=== PATIENT | male | born 1950 | race Caucasian/White ===

== ENCOUNTER 2017-06-04 04:25 | Inpatient (IN) | payer MEDICARE, OTHER ==
[2017-06-04] MEDS: ONDANSETRON 4 MG INJ IV (05:45)
[2017-06-04] MEDS: SOD CHLORIDE 0.9% 1,000 ML IV ×2 (05:45→12:00)
[2017-06-04] MEDS: morphine 4 MG/ML VIAL IV ×2 (05:45→06:41)
[2017-06-04 07:05] LABS: ADD MAN DIFF? NO
[2017-06-04 07:07] LABS: BASOPHILS % 0.2 % (0.0-2.0); EOSINOPHILS % 0.1 % (0.0-7.0); HEMATOCRIT 42.2 % (42.0-52.0); HEMOGLOBIN 14.8 g/dl (14.0-18.0); LYMPHOCYTES # 0.9 10^3/ul (0.8-2.9); LYMPHOCYTES % 8.5 % (15.0-51.0); MEAN CORPUSCULAR HEMOGLOBIN 32.2 pg (29.0-33.0); MEAN CORPUSCULAR HGB CONC 35.1 g/dl (32.0-37.0); MEAN CORPUSCULAR VOLUME 91.9 fl (82.0-101.0); MEAN PLATELET VOLUME 9.4 fl (7.4-10.4); MONOCYTE # 0.4 10^3/ul (0.3-0.9); MONOCYTES % 3.8 % (0.0-11.0); NEUTROPHIL # 8.7 10^3/ul (1.6-7.5); PLATELET COUNT 224 10^3/UL (140-415); RED BLOOD COUNT 4.59 10^6/ul (4.70-6.10); RED CELL DISTRIBUTION WIDTH 12.2 % (11.5-14.5)
[2017-06-04 07:32] LABS: ALANINE AMINOTRANSFERASE 60 IU/L (13-69); ALBUMIN 4.5 g/dl (3.3-4.9); ALBUMIN/GLOBULIN RATIO 1.28; ALKALINE PHOSPHATASE 89 IU/L (42-121); ANION GAP 18 (8-16); ASPARTATE AMINO TRANSFERASE 34 IU/L (15-46); BILIRUBIN,INDIRECT 0.2 mg/dl (0-1.1); BILIRUBIN,TOTAL 0.2 mg/dl (0.2-1.3); BLOOD UREA NITROGEN 13 mg/dl (7-20); CALCIUM 9.3 mg/dl (8.4-10.2); CARBON DIOXIDE 26 mmol/L (21-31); CHLORIDE 106 mmol/L (97-110); CREATININE 0.93 mg/dl (0.61-1.24); GLUCOSE 216 mg/dl (70-220); LIPASE 77 U/L (23-300); POTASSIUM 3.9 mmol/L (3.5-5.1); SODIUM 146 mmol/L (135-144)
[2017-06-04 07:51] LABS: TROPONIN-I < 0.012 ng/ml (0.00-0.12)
[2017-06-04] MEDS: AMPICILLIN/SULB 3 GM/NS (PMX) 100 ML IVPB (08:54)
[2017-06-04] MEDS ORDERED: ONDANSETRON 4 MG INJ IV ×2 (09:00→11:30)
[2017-06-04] MEDS ORDERED: ACETAMINOPHEN 325 MG TAB PO (09:00)
[2017-06-04 11:06] LABS: INR 1.06; PROTIME 13.9 Sec (11.9-14.9); PT RATIO 1.1
[2017-06-04 11:07] LABS: PARTIAL THROMBOPLASTIN TIME 27.4 Sec (25.0-35.0)
[2017-06-04] MEDS ORDERED: MAGNESIUM HYDROXIDE 30ML CUP PO (11:30)
[2017-06-04] MEDS ORDERED: PROVENTIL HFA 6.7GM INHALER INH (11:30)
[2017-06-04] MEDS ORDERED: GLUCOSE GEL 15 GRAM TUBE BUCCAL (11:30)
[2017-06-04] MEDS ORDERED: BISACODYL 10 MG SUPP PR (11:30)
[2017-06-04] MEDS ORDERED: HYDROCODONE/APAP (5/325) TAB PO ×2 (11:30)
[2017-06-04] MEDS ORDERED: DOCUSATE SODIUM 100 MG CAP PO (11:30)
[2017-06-04] MEDS ORDERED: ACETAMINOPHEN 650 MG SUPP PR (11:30)
[2017-06-04] MEDS ORDERED: DEXTROSE 50% 50 ML SYRINGE IV ×2 (11:30)
[2017-06-04] MEDS ORDERED: morphine 2 MG INJ IV (11:30)
[2017-06-04] MEDS ORDERED: GLUCOSE GEL 15 GRAM TUBE PO ×2 (11:30)
[2017-06-04] MEDS ORDERED: GLUCAGON 1 MG INJ IM (11:30)
[2017-06-04] MEDS ORDERED: NACL 0.9% 3 ML SYG IV (11:30)
[2017-06-04] MEDS: INSULIN ASPART [NOVOLOG] 3 ML PEN SC ×3 (12:00→21:00)
[2017-06-04] MEDS ORDERED: ALBUTEROL HFA 8 GM INHALER INH (13:00)
[2017-06-04] MEDS: ACETAMINOPHEN 325 MG TAB PO (20:03)
[2017-06-05] MEDS: ACCU-CHEK XX (02:00)
[2017-06-05] MEDS: SOD CHLORIDE 0.9% 1,000 ML IV (03:16)
[2017-06-05] MEDS: PANTOPRAZOLE 40 MG INJ IV (05:34)
[2017-06-05 05:57] LABS: ADD MAN DIFF? NO
[2017-06-05] MEDS ORDERED: PANTOPRAZOLE 40 MG INJ IV ×2 (06:00)
[2017-06-05 06:06] LABS: WHITE BLOOD COUNT 9.4 10^3/ul (4.8-10.8)
[2017-06-05 06:06] LABS: BASOPHILS % 0.1 % (0.0-2.0); EOSINOPHILS % 0.3 % (0.0-7.0); HEMATOCRIT 38.4 % (42.0-52.0); HEMOGLOBIN 13.5 g/dl (14.0-18.0); LYMPHOCYTES # 1.7 10^3/ul (0.8-2.9); LYMPHOCYTES % 18.1 % (15.0-51.0); MEAN CORPUSCULAR HEMOGLOBIN 32.4 pg (29.0-33.0); MEAN CORPUSCULAR HGB CONC 35.2 g/dl (32.0-37.0); MEAN CORPUSCULAR VOLUME 92.1 fl (82.0-101.0); MEAN PLATELET VOLUME 9.2 fl (7.4-10.4); MONOCYTE # 0.8 10^3/ul (0.3-0.9); MONOCYTES % 8.1 % (0.0-11.0); NEUTROPHIL # 6.9 10^3/ul (1.6-7.5); NEUTROPHILS % 73.2 % (39.0-77.0); PLATELET COUNT 190 10^3/UL (140-415); RED BLOOD COUNT 4.17 10^6/ul (4.70-6.10); RED CELL DISTRIBUTION WIDTH 12.4 % (11.5-14.5)
[2017-06-05 06:22] LABS: ALANINE AMINOTRANSFERASE 49 IU/L (13-69); ALBUMIN 3.5 g/dl (3.3-4.9); ALBUMIN/GLOBULIN RATIO 1.12; ALKALINE PHOSPHATASE 55 IU/L (42-121); ANION GAP 14 (8-16); ASPARTATE AMINO TRANSFERASE 29 IU/L (15-46); BILIRUBIN,INDIRECT 0.7 mg/dl (0-1.1); BILIRUBIN,TOTAL 0.7 mg/dl (0.2-1.3); BLOOD UREA NITROGEN 11 mg/dl (7-20); CALCIUM 8.5 mg/dl (8.4-10.2); CARBON DIOXIDE 27 mmol/L (21-31); CHLORIDE 106 mmol/L (97-110); CHOL/HDL RATIO 3.3 RATIO; CHOLESTEROL 142 mg/dl (100-200); CREATININE 0.85 mg/dl (0.61-1.24); GLUCOSE 92 mg/dl (70-220); HDL CHOLESTEROL 43 mg/dl (30-78); LDL CHOLESTEROL,CALCULATED 86 mg/dl; MAGNESIUM 1.5 mg/dl (1.7-2.5); PHOSPHORUS 2.4 mg/dl (2.5-4.9); POTASSIUM 3.9 mmol/L (3.5-5.1); SODIUM 143 mmol/L (135-144); TOTAL PROTEIN 6.6 g/dl (6.1-8.1); TRIGLYCERIDES 63 mg/dl (0-149)
[2017-06-05 06:41] LABS: FREE THYROXINE INDEX (Calc) 1.84 ug/ml (0.65-3.89); T3 UPTAKE 31.7 % (23.5-40.5); T4 (THYROXINE) 5.8 ug/dl (5.5-11.0)
[2017-06-05] MEDS: INSULIN ASPART [NOVOLOG] 3 ML PEN SC ×4 (08:00→21:00)
[2017-06-05] MEDS: LOSARTAN 50 MG TAB PO (08:32)
[2017-06-05] MEDS: LORATADINE 10 MG TAB PO (08:32)
[2017-06-05] MEDS ORDERED: MIDAZOLAM 1 MG/ML 2 ML INJ (12:42)
[2017-06-05] MEDS: BUPIVACAINE 0.25% (MPF) 30 ML INJ (14:15)
[2017-06-05] MEDS ORDERED: PROPOFOL 20 ML (14:20)
[2017-06-05] MEDS ORDERED: LIDOCAINE 2% (SDV) 5 ML INJ (14:20)
[2017-06-05] MEDS ORDERED: CEFAZOLIN 1 GM INJ (14:21)
[2017-06-05] MEDS ORDERED: NEOSTIGMINE 3 MG/3 ML SYRINGE (14:22)
[2017-06-05] MEDS ORDERED: GLYCOPYRROLATE 0.4 MG INJ (14:22)
[2017-06-05] MEDS ORDERED: KETOROLAC 30 MG INJ (14:22)
[2017-06-05] MEDS ORDERED: ONDANSETRON 4 MG INJ (14:22)
[2017-06-05] MEDS ORDERED: HYDROmorphONE 1 MG/ML SYG IV (14:30)
[2017-06-05] MEDS ORDERED: HYDROCODONE/APAP (5/325) TAB PO (14:30)
[2017-06-05] MEDS ORDERED: NA PHOSPHATE/BIPHOS 133 ML ENEMA PR (14:30)
[2017-06-05] MEDS ORDERED: BISACODYL 10 MG SUPP PR (14:30)
[2017-06-05] MEDS ORDERED: MEPERIDINE 25 MG INJ (14:35)
[2017-06-05] MEDS: MEPERIDINE 25 MG INJ IV (14:48)
[2017-06-05] MEDS ORDERED: FENTAnyl 50 MCG/ML VIAL IV (15:00)
[2017-06-05] MEDS ORDERED: HYDROmorphONE (0.2 MG/ML) 10ML SYG IV (15:00)
[2017-06-05] MEDS ORDERED: METOCLOPRAMIDE 10 MG INJ IV (15:00)
[2017-06-05] MEDS ORDERED: ONDANSETRON 4 MG INJ IV (15:00)
[2017-06-05] MEDS ORDERED: DIPHENHYDRAMINE 50 MG INJ IV (15:00)
[2017-06-05] MEDS ORDERED: KETOROLAC 30 MG INJ IV (15:00)
[2017-06-05] MEDS: HYDROmorphONE (0.2 MG/ML) 10ML SYG IV (15:36)
[2017-06-05] MEDS: POTASSIUM PHOSPHATE 15 MM in SOD CHLORIDE 0.9% 250 ML IVPB (18:00)
[2017-06-05] MEDS: HYDROmorphONE 0.5 MG/0.5 ML SYG IV (19:08)
[2017-06-05] MEDS: MAGNESIUM SULFATE 2 GM/50 ML 50 ML IVPB (22:46)
[2017-06-05] MEDS: ACETAMINOPHEN 325 MG TAB PO (23:29)
[2017-06-06] MEDS: ACCU-CHEK XX (02:00)
[2017-06-06] MEDS: PANTOPRAZOLE (EC) 40 MG TAB PO (05:41)
[2017-06-06] MEDS: DOCUSATE SODIUM 100 MG CAP PO (05:41)
[2017-06-06 06:38] LABS: ADD MAN DIFF? NO
[2017-06-06 06:49] LABS: BASOPHILS % 0.1 % (0.0-2.0); HEMATOCRIT 36.6 % (42.0-52.0); HEMOGLOBIN 12.7 g/dl (14.0-18.0); LYMPHOCYTES # 1.2 10^3/ul (0.8-2.9); LYMPHOCYTES % 11.9 % (15.0-51.0); MEAN CORPUSCULAR HEMOGLOBIN 31.5 pg (29.0-33.0); MEAN CORPUSCULAR HGB CONC 34.7 g/dl (32.0-37.0); MEAN CORPUSCULAR VOLUME 90.8 fl (82.0-101.0); MEAN PLATELET VOLUME 9.2 fl (7.4-10.4); MONOCYTE # 1.1 10^3/ul (0.3-0.9); MONOCYTES % 10.8 % (0.0-11.0); NEUTROPHIL # 7.7 10^3/ul (1.6-7.5); NEUTROPHILS % 76.8 % (39.0-77.0); PLATELET COUNT 178 10^3/UL (140-415); RED BLOOD COUNT 4.03 10^6/ul (4.70-6.10)
[2017-06-06 07:17] LABS: LACTIC ACID 1.2 mmol/L (0.5-2.0)
[2017-06-06 07:18] LABS: INR 1.17; PROTIME 15.1 Sec (11.9-14.9); PT RATIO 1.2
[2017-06-06 07:19] LABS: PARTIAL THROMBOPLASTIN TIME 29.9 Sec (25.0-35.0)
[2017-06-06 07:29] LABS: ALANINE AMINOTRANSFERASE 78 IU/L (13-69); ALBUMIN 3.4 g/dl (3.3-4.9); ALBUMIN/GLOBULIN RATIO 1.21; ALKALINE PHOSPHATASE 50 IU/L (42-121); ANION GAP 14 (8-16); ASPARTATE AMINO TRANSFERASE 63 IU/L (15-46); BILIRUBIN,INDIRECT 0.6 mg/dl (0-1.1); BILIRUBIN,TOTAL 0.6 mg/dl (0.2-1.3); BLOOD UREA NITROGEN 11 mg/dl (7-20); CALCIUM 8.1 mg/dl (8.4-10.2); CARBON DIOXIDE 26 mmol/L (21-31); CHLORIDE 105 mmol/L (97-110); CREATININE 0.82 mg/dl (0.61-1.24); GLUCOSE 132 mg/dl (70-220); MAGNESIUM 1.9 mg/dl (1.7-2.5); POTASSIUM 3.9 mmol/L (3.5-5.1); SODIUM 141 mmol/L (135-144); TOTAL PROTEIN 6.2 g/dl (6.1-8.1)
[2017-06-06 07:35] LABS: B-TYPE NATRIURETIC PEPTIDE 347 PG/ML (0-125)
[2017-06-06] MEDS: HYDROCODONE/APAP (5/325) TAB PO (07:44)
[2017-06-06] MEDS: INSULIN ASPART [NOVOLOG] 3 ML PEN SC (08:00)
[2017-06-06] MEDS: LOSARTAN 50 MG TAB PO (08:22)
[2017-06-06] MEDS: LORATADINE 10 MG TAB PO (08:22)
[2017-06-06] MEDS ORDERED: INFLUENZA VIRUS VACCINE 0.5 ML (DISPENSING) IM* (09:00)
[2017-06-06] MEDS ORDERED: ENOXAPARIN 40 MG/0.4 ML SYG SC (09:00)
== END 2017-06-06 15:02 | disposition home or self-care (01) | DRG 419 ==
LOC: E/R 04:25 → PP2 08:47
PROC: 0FT44ZZ Resection of Gallbladder, Percutaneous Endoscopic Approach (ICD-10-PCS; principal; 2017-06-05 12:00)
PROC: 0FB04ZX Excision of Liver, Percutaneous Endoscopic Approach, Diagnostic (ICD-10-PCS; 2017-06-05 12:00)
DX: K80.00 Calculus of gallbladder with acute cholecystitis without obstruction (principal); I10 Essential (primary) hypertension; E11.9 Type 2 diabetes mellitus without complications; K21.9 Gastro-esophageal reflux disease without esophagitis; E78.5 Hyperlipidemia, unspecified; Z79.84 Long term (current) use of oral hypoglycemic drugs
CPT/HCPCS: 36415; 71045; 74176; 74181; 76705; 80053; 80061; 82962; 83036; 83605; 83690; 83735; 83880; 84100; 84436; 84443; 84479; 84484; 85025; 85610; 85730; 86850; 86900; 86901; 88304; 88307; 88313; 93005; 96374; 96375; 99285-25

== ENCOUNTER 2017-06-21 10:32 | Outpatient (CLI) | payer MEDICARE, OTHER | END 2017-06-21 15:31 | disposition home or self-care (01) | LOC: HPC 10:32 | DX: Z09 Encounter for follow-up examination after completed treatment for conditions other than malignant neoplasm (principal); K81.0 Acute cholecystitis; I10 Essential (primary) hypertension; E11.9 Type 2 diabetes mellitus without complications; K21.9 Gastro-esophageal reflux disease without esophagitis | CPT/HCPCS: G0463 ==